=== PATIENT | male | born 1980 | race Asian ===

== ENCOUNTER 2017-10-20 09:41 | Outpatient (CLI) | payer BC ==
--- NOTE | 2017-10-20 12:09 | ULT ---
RIGHT UPPER QUADRANT ULTRASOUND: DATE: 10/20/17. HISTORY: Abdominal pain. FINDINGS: Limited visualized portions of the pancreas, visualized portions of the IVC, liver, and right kidney demonstrate a normal sonographic appearance. The right kidney measures 9.1 cm in length. There is a trace amount of echogenic material within the dependent portion of the gallbladder lumen s uggesting a tiny amount of sludge. No gallbladder calculus is seen and there is no gallbladder wall thickening or pericholecystic fluid. The common duct measures 0.4 cm in diameter. IMPRESSION: Trace amount of sludge within the gallbladder lumen. No gallbladder calculus is seen. The common du ct is normal in caliber. POS: [facility]
== END 2017-10-20 09:42 | disposition home or self-care (01) ==
LOC: SCSULT 09:41
PROVIDERS: ATTEND Family Medicine
DX: R10.84 Generalized abdominal pain (principal)
CPT/HCPCS: 76705

== ENCOUNTER 2018-02-09 08:26 | Outpatient (CLI) | payer BC ==
--- NOTE | 2018-02-09 14:05 | MRI ---
MRI ABDOMEN WITHOUT CONTRAST UTILIZING MRCP PROTOCOL: INDICATIONS: Right upper quadrant abdominal pain with history of biliary sludge. FINDINGS: No layered signal intensity is seen within the gallbladder to suggest the presence of intraluminal sl udge. The common bile duct measures 3.6 mm, which is normal. No intrahepatic biliary ductal dilatat ion is evident. The main pancreatic duct is normal appearing. No free fluid is evident. The gallbladder wall is normal appearing. The visualized kidneys and sple en appear within normal limits. No focal hepatic lesion is grossly evident. No enlarged lymph nodes are noted. Bone marrow signal intensity is within normal limits. IMPRESSION: Normal MR examination of the abdomen. No evidence of intrahepatic or extrahepatic biliary ductal dil atation. No MR evidence to suggest the presence of gallbladder sludge or cholelithiasis. POS: [facility]
== END 2018-02-09 08:27 | disposition home or self-care (01) ==
LOC: MRI 08:26
PROVIDERS: ATTEND Internal Medicine
DX: R10.11 Right upper quadrant pain (principal); K83.8 Other specified diseases of biliary tract
CPT/HCPCS: 74181

== ENCOUNTER 2018-04-21 09:47 | Outpatient (CLI) | payer BC ==
--- NOTE | 2018-04-21 11:10 | RAD ---
CHEST PA AND LATERAL: HISTORY: Bronchitis. Chest pain. FINDINGS: The heart size is normal. The lungs are well expanded without focal areas of consolidation, pneumoth oraces, or pleural effusions. No acute osseous abnormalities are seen. IMPRESSION: No radiographic evidence of acute cardiopulmonary process. POS: OFF
== END 2018-04-21 09:48 | disposition home or self-care (01) ==
LOC: SCSRAD 09:47
PROVIDERS: ATTEND Nurse Practitioner Family
DX: J40 Bronchitis, not specified as acute or chronic (principal)
CPT/HCPCS: 71046

== ENCOUNTER 2018-08-09 20:42 | Emergency (ER) | payer BC ==
[2018-08-09] MEDS ORDERED: Ketorolac Tromethamine 30 MG/ML VIAL ONE (21:09)
[2018-08-09 21:42] LABS: #Basophils 0.1 thou/uL (0.0-0.2); #Lymphocytes 4.1 thou/uL (1.20-3.40); #Monocytes 0.5 thou/uL (0.11-0.59); %Basophils 1.1 % (0.0-1.0); %Eosinophils 0.4 % (0.0-10.0); %Lymphocytes 47.3 % (21.0-51.0); %Monocytes 5.8 % (0.0-10.0); %Neutrophils 45.4 % (42.0-75.0); Hemoglobin 15.4 g/dL (14.0-18.0); Mean Corpuscular HGB CONC 31.8 g/dL (32.0-36.0); Mean Corpuscular Volume 91.1 fL (78.0-98.0); Mean Platelet Volume 6.8 fL (7.4-10.4); Platelet Count 252 thou/uL (130-400); RBC Distribution Width 11.6 % (11.5-14.5); White Blood Cell (WBC) Count 8.8 thou/uL (4.8-10.8)
--- NOTE | 2018-08-09 21:43 | ULT ---
Scrotal ultrasound: 08/09/2018 COMPARISON: None HISTORY: Scrotal pain TECHNIQUE: Multiplanar grayscale sonographic imaging of the scrotal contents with Doppler interrogati on of the testicles including color flow and spectral analysis FINDINGS: Right testicle measures 4.2 x 2.2 x 2.6 cm and left testicle measures 3.9 x 2.2 x 2.2 cm. Normal blood flow is noted within both testicles. No intratesticular mass identified on either side. Trace bilateral hydroceles are noted. Right epididymal head measures 1.2 x 0.6 x 1.1 cm and left epididymal head measures 1.2 x 0.6 x 1.0 c m. A left-sided varicocele is noted. IMPRESSION: Incidental findings as detailed above. No acute findings are noted.
--- NOTE | 2018-08-09 21:59 | CT ---
CT of abdomen and pelvis: 08/09/2018 HISTORY: Inguinal pain, testicular pain TECHNIQUE: Axial CT imaging at 5 mm intervals from lung bases through pubic symphysis without contras t. Coronal reformatted imaging obtained. FINDINGS: The lack of contrast media limits assessment of the viscera, bowel, vascular structures, an d for lymphadenopathy. The imaged lung bases are grossly unremarkable. No free intraperitoneal air or fluid. The liver, gallbladder, spleen, pancreas, adrenal glands, and kidneys appear unremarkable. No nephrol ithiasis or evidence of obstructive uropathy noted on either side. Limited assessment of the bowel appears unremarkable, including the appendix. Review of the osseous structures demonstrates no acute findings. IMPRESSION: No acute findings.
[2018-08-09 22:00] LABS: ALT (SGPT) 20 U/L (8-55); AST (SGOT) 21 U/L (5-34); Albumin 4.9 g/dL (3.5-5.0); Alkaline Phosphatase 81 U/L (40-150); Anion Gap 12 mmol/L (10-20); BUN (Urea Nitrogen) 16 mg/dL (8.9-20.6); Bilirubin, Total 0.3 mg/dL (0.2-1.2); Calc. Creatinine Clearance 0 mL/min (70-130); Calcium 10.1 mg/dL (7.8-10.44); Carbon Dioxide 28 mmol/L (22-29); Chloride 104 mmol/L (98-107); Estimated GFR-MDRD Greater than 90; Globulin 3.3 g/dL (2.4-3.5); Glucose 95 mg/dL (70-105); Lipase 19 U/L (8-78); Potassium 3.8 mmol/L (3.5-5.1); Protein, Total 8.2 g/dL (6.0-8.3); Sodium 140 mmol/L (136-145)
[2018-08-09 22:30] LABS: Bilirubin Negative (Negative); Blood, Urine Negative (Negative); Clarity Clear (Clear); Glucose, Urine (Dipstick) Negative (Negative); Leukocyte Negative (Negative); Nitrite Negative (Negative); Protein, Urine (Dipstick) Negative (Neg-Trace); Specific Gravity, Urine 1.015 (1.005-1.030); Urobilinogen 0.2 mg/dL (0.2-1.0)
== END 2018-08-09 22:46 | disposition home or self-care (01) ==
LOC: SCSER 20:42
DX: R10.30 Lower abdominal pain, unspecified (principal)
CPT/HCPCS: 74176; 76870; 80053; 81003; 83605; 83690; 85025; 93976; 96374; J1885

== ENCOUNTER 2019-06-14 14:20 | Outpatient (CLI) | payer BC ==
--- NOTE | 2019-06-14 17:03 | MRI ---
EXAM: MRI of the abdomen without and with contrast COMPARISON: None HISTORY: Right upper quadrant abdominal pain TECHNIQUE: Multiplanar multi sequence MR images were taken of the abdomen without and with IV contras t. [An MRCP was performed.] FINDINGS: Liver: No focal liver lesions or intrahepatic ductal dilatation. Normal signal without dropout on out of phase images. No abnormal enhancement. Gallbladder: No filling defects or gallbladder wall thickening. Common bile duct: Normal caliber without filling defects Adrenal glands: Unremarkable. Kidneys: No hydronephrosis or focal renal lesions. No abnormal areas of enhancement. Spleen: Unremarkable. Pancreas: Unremarkable. No abnormal enhancement. Retroperitoneum: No enlarged lymph nodes Bones: No marrow signal abnormality. IMPRESSION: No significant intra-abdominal abnormality.
== END 2019-06-14 14:21 | disposition home or self-care (01) ==
LOC: SCSMRI 14:20
PROVIDERS: ATTEND Internal Medicine
DX: R10.11 Right upper quadrant pain (principal)
CPT/HCPCS: 74183